=== PATIENT | female | born 1980 | race Caucasian/White ===

== ENCOUNTER 2021-08-29 17:50 | Emergency (ER) | payer OTHER, SELFPAY ==
--- NOTE | ~2021-08-29 | XR_ITS ---
EXAMINATION: XR hand LT min 3V INDICATION: Left hand pain TECHNIQUE: Three views of the left hand are obtained. COMPARISON: None available FINDINGS: There is no fracture, dislocation, or subluxation. The bones, soft tissues, and joint space s are normal. IMPRESSION: 1. No acute osseous abnormality. Reviewed, dictated and finalized at location A.
--- NOTE | ~2021-08-29 | XR_ITS ---
EXAMINATION: XR knee RT min 4V DATE: 08/29/2021 18:16 INDICATION: Right knee pain TECHNIQUE: Five views of the right knee were obtained. COMPARISON: None. FINDINGS: Alignment is normal. No fracture or osteochondral lesion. Joint spaces are normal with no e rosions. No joint effusion/synovitis. Soft tissues are unremarkable. IMPRESSION: 1. No acute osseous abnormality. Reviewed, dictated and finalized at location A.
[2021-08-29 17:56] VITALS: BP 116/68; PULSE 94; RESP 16; TEMP 36.7; O2SAT 99
[2021-08-29 18:07] VITALS: BP 116/68; PULSE 94; RESP 16; TEMP 36.7; O2SAT 99
--- NOTE | 2021-08-29 18:42 | ED.GENADULT ---
HPI - General Adult General Chief complaint: Wound/Laceration Stated complaint: right knee and left hand injury Time Seen by Provider: 08/29/21 18:09 Source: patient and RN notes reviewed Mode of arrival: ambulatory Limitations: no limitations History of Present Illness HPI narrative: Patient presents today complaining of an injury to her right knee and left hand after she fell in front of a concrete staircase last night, catching herself with her knee and hand on the stairs. She currently rates pain 3/10, which increases with movement of the knee and touching the left hand. She has been using ice and taking ibuprofen with some relief. MD complaint: Left hand and right knee injury Related Data Home Medications Medication Instructions Recorded Confirmed No Home Medications 08/29/21 08/29/21 Allergies Allergy/AdvReac Type Severity Reaction Status Date / Time No Known Allergies Allergy Verified 08/29/21 18:06 Review of Systems Review of Systems: CONSTITUTIONAL: Denies body aches, fever, chills, or sweats. EYES: Denies visual changes, redness, or discharge. ENT: Denies rhinorrhea, congestion, sore throat, or otalgia. CARDIOVASCULAR: Denies chest pain, palpitations, or edema. RESPIRATORY: Denies cough or dyspnea. GASTROINTESTINAL: Denies abdominal pain, nausea, vomiting, or diarrhea. GENITOURINARY: Denies dysuria or hematuria. SKIN: Denies rash, itching, or wounds. MUSCULOSKELETAL: Denies back pain, or myalgia. + Right knee and left hand injury NEUROLOGIC: Denies headache, numbness, tingling, or weakness. PSYCH: Denies depression or anxiety. PMFSH Comments At time of signature, I have reviewed and agree with nursing past medical, surgical, social and family history unless otherwise noted. Please see nursing chart for further information. There is no relevant family history pertinent to the presenting complaint Exam Narrative: GENERAL: Well-appearing, well-nourished, and in no acute distress. HEAD: Normocephalic, atraumatic. EYES: EOMI. No redness or drainage. Conjunctivae normal. ENT: Mucous membranes pink and moist. NECK: Normal AROM. CHEST: No respiratory distress. EXTREMITIES: Right knee: Mild edema about the knee with very superficial linear abrasion to the patella. Tenderness about the knee generally. Decreased range of motion due to pain. Distal sensation intact. Capillary refill normal. Posterior tibial pulse normal. Left hand: Tenderness to the lateral fifth metacarpal with faint ecchymosis. No edema noted. No pain to the wrist or fingers. Distal sensation intact. Capillary refill normal. Radial pulse normal. Full range of motion of the fingers and wrist. SKIN: Warm, dry, no rash. Capillary refill normal. Normal skin turgor. NEURO: No focal deficits. Alert and oriented x3. Gait steady. PSYCH: Normal affect. No signs of depression or anxiety. Course Vital Signs Vital signs: Vital Signs Temperature 98.1 F 08/29/21 17:56 Pulse Rate 94 08/29/21 17:56 Respiratory Rate 16 08/29/21 17:56 Blood Pressure 116/68 08/29/21 17:56 Pulse Oximetry 99 08/29/21 17:56 Temperature 98.1 F 08/29/21 18:07 Pulse Rate 94 08/29/21 18:07 Respiratory Rate 16 08/29/21 18:07 Blood Pressure 116/68 08/29/21 18:07 Pulse Oximetry 99 08/29/21 18:07 Reviewed Medical Decision Making Differential Diagnosis Differential Diagnosis: Contusion, abrasion, fracture Vital Signs Vital Signs: Vital Signs Temperature 98.1 F 08/29/21 17:56 Pulse Rate 94 08/29/21 17:56 Respiratory Rate 16 08/29/21 17:56 Blood Pressure 116/68 08/29/21 17:56 Pulse Oximetry 99 08/29/21 17:56 Temperature 98.1 F 08/29/21 18:07 Pulse Rate 94 08/29/21 18:07 Respiratory Rate 16 08/29/21 18:07 Blood Pressure 116/68 08/29/21 18:07 Pulse Oximetry 99 08/29/21 18:07 Imaging Data Radiologist's impression: ITS Impressions Hand X-Ray 08/29/21 18:26 IMPRESSION: 1. N
== END 2021-08-29 18:50 | disposition home or self-care (01) ==
PROVIDERS: Emergency Provider Nurse Practitioner; PCP Internal Medicine
DX: S60.222A Contusion of left hand, initial encounter (principal); S80.01XA Contusion of right knee, initial encounter; W19.XXXA Unspecified fall, initial encounter
CPT/HCPCS: 73130; 73564; 99204; G0463

== ENCOUNTER 2024-05-20 17:04 | Emergency (ER) | payer OTHER, SELFPAY ==
[2024-05-20 17:09] VITALS: BP 149/93; PULSE 91; RESP 20; TEMP 36.6; O2SAT 99
--- NOTE | 2024-05-20 17:17 | ED.SKABFB ---
HPI - Skin/Abscess/Foreign Bdy General Chief complaint: Skin/Abscess/Foreign Body Stated complaint: Insect Bites/Bee Sting History of Present Illness HPI narrative: Patient presents with multiple insect bites to the lower legs. Patient states she was a friend's house and she feels that her animals have fleas at her house. Patient states she takes Zyrtec daily and has been taking Benadryl for the itching. Patient states she was unsure if she was going to come to be evaluated to she walked out the door and she got stung by wasps on her right index finger. Slight swelling to area. No respiratory problems patient states she is not allergic to wasps. Related Data Home Medications Medication Instructions Recorded Confirmed atomoxetine 25 mg capsule mg PO 05/20/24 ergocalciferol (vitamin D2) 1,250 05/20/24 mcg (50,000 unit) capsule Allergies Allergy/AdvReac Type Severity Reaction Status Date / Time No Known Allergies Allergy Verified 08/29/21 18:06 Review of Systems Review of Systems: CONSTITUTIONAL: Denies fever, chills, or sweats. EYES: Denies visual changes, redness, or discharge. ENT: Denies rhinorrhea, congestion, sore throat, or otalgia. CARDIOVASCULAR: Denies chest pain, palpitations, or edema. RESPIRATORY: Denies cough or dyspnea. GASTROINTESTINAL: Denies abdominal pain, nausea, vomiting, or diarrhea. GENITOURINARY: Denies dysuria or hematuria. SKIN: Denies rash or itching. MUSCULOSKELETAL: Denies back pain, joint pain, or myalgia. NEUROLOGIC: Denies headache, numbness, or weakness. PSYCHIATRIC: Denies anxiety or depression. PMFSH Comments At time of signature, agree with nursing past medical, surgical, social and family history. There is no relevant family history pertinent to the presenting complaint Exam Narrative: GENERAL: Well-appearing, well-nourished, and in no acute distress. HEAD: Normocephalic, atraumatic. EYES: PERRLA and EOMI. ENT: Nares clear, no rhinorrhea or epistaxis. Mucous membranes moist. NECK: Supple. CHEST: Clear to auscultation. No respiratory distress. HEART: Regular rate and rhythm. No murmur heard. Normal peripheral pulses. ABDOMEN: Soft, nontender, nondistended, normal active bowel sounds. EXTREMITIES: Normal range of motion. No edema. SKIN: Warm, dry, no rash. Multiple med bites to lower extremities consistent with flea bites. Insect bite to right index finger slightly swollen consistent with wasps sting. NEURO: No focal deficits. Alert and oriented x3. [place] Coma Scale Eye Opening: Spontaneous 4 [place] Coma Scale Motor: Obeys Commands 6 [place] Coma Scale Verbal: Oriented 5 [place] Coma Scale Total 15 Course Course Level of Care: Express Care Visit Vital Signs Vital signs: Vital Signs Temperature 36.6 C 05/20/24 17:09 Pulse Rate 91 05/20/24 17:09 Respiratory Rate 20 05/20/24 17:09 Blood Pressure 149/93 H 05/20/24 17:09 Pulse Oximetry 99 05/20/24 17:09 Oxygen Delivery Room Air 05/20/24 17:09 Temperature 36.6 C 05/20/24 17:09 Pulse Rate 91 05/20/24 17:09 Respiratory Rate 20 05/20/24 17:09 Blood Pressure 149/93 H 05/20/24 17:09 Pulse Oximetry 99 05/20/24 17:09 Oxygen Delivery Room Air 05/20/24 17:09 Please KERRIE schedule a followup visit with your personal physician for further evaluation and treatment. Including recheck and discussion of your blood pressure. If your symptoms persist, change or worsen significantly before you can contact your personal physician then please, without delay, go to the emergency department for further evaluation Discharge Plan Discharge Clinical Impression: Insect bites Patient Disposition: Home, Self-Care Condition: Stable Instructions: Insect Bite or Sting (ED) Additional Instructions: Continue Zyrtec daily and take Benadryl at bedtime for itching. [id number] hydrocortisone cream to areas Take prednisone every morning with food until gone Follow-up with
== END 2024-05-20 17:23 | disposition home or self-care (01) ==
PROVIDERS: Emergency Provider Nurse Practitioner Family; PCP Internal Medicine
DX: S80.862A Insect bite (nonvenomous), left lower leg, initial encounter (principal); S80.861A Insect bite (nonvenomous), right lower leg, initial encounter; W57.XXXA Bitten or stung by nonvenomous insect and other nonvenomous arthropods, initial encounter; T63.461A Toxic effect of venom of wasps, accidental (unintentional), initial encounter
CPT/HCPCS: 99213; G0463